=== PATIENT | female | born 1975 | race Caucasian/White ===

== ENCOUNTER → 2021-06-22 13:22 | Outpatient (CLI) | payer OTHER, SELFPAY ==
--- NOTE | ~2021-06-22 | US_ITS ---
EXAMINATION: US pelvic complete DATE: 06/22/2021 13:40 INDICATION: Abnormal uterine bleeding Comparison:No prior studies for comparison. TECHNIQUE: Multiple transabdominal sonographic images of the pelvis performed. FINDINGS: The uterus measures 8.9 x 3.8 x 5 cm. The endometrial complex measures 5 mm. The right ovary measures 3 x 1.8 x 2.8 cm and the left ovary measures 2.9 x 1.7 x 2.3 cm. There are small follicles in each ovary. Normal doppler signal in both ovaries. There is no free fluid in the pelvis. There are no abnormal masses seen on either side. IMPRESSION: 1. Normal pelvic ultrasound. Reviewed, dictated and finalized at location A. [employer]
== END ==
PROVIDERS: Visit Provider Obstetrics & Gynecology
DX: N93.8 Other specified abnormal uterine and vaginal bleeding (principal)
CPT/HCPCS: 76856

== ENCOUNTER → 2023-01-08 07:49 | Outpatient (CLI) | payer BC, SELFPAY ==
--- NOTE | ~2023-01-08 | MM_ITS ---
EXAMINATION: MM screening cr BI w flor HISTORY: Screening mammogram TECHNIQUE: Craniocaudal and mediolateral oblique 3-D tomosynthesis images were obtained and synthetic 2-D images were generated. CAD analysis was submitted and interpreted. COMPARISON: 03/07/2017 bilateral screening mammogram BREAST PARENCHYMAL COMPOSITION: The breasts are heterogeneously dense, which may obscure small masses . FINDINGS: There is no evidence of suspicious mass, calcification, or architectural distortion to sugg est malignancy in either breast. There has been no suspicious interval change. IMPRESSION: 1. No mammographic evidence of malignancy. 2. Recommend routine screening mammography in one year. BI-RADS Category 1: Negative Reviewed, dictated and finalized at location A.
== END ==
PROVIDERS: PCP Family Medicine; Visit Provider Advanced Practice Midwife
DX: Z12.31 Encounter for screening mammogram for malignant neoplasm of breast (principal)
CPT/HCPCS: 77063; 77067